=== PATIENT | female | born 1960 | race African-American/Black ===

== ENCOUNTER 2017-02-23 15:47 | Emergency (ER) | payer SELFPAY ==
[~2017-02-23 15:47] MED LIST: IBUP-974 PO
--- NOTE | 2017-02-23 15:49 | NUR ---
CALLED PT FOR TRIAGE ASSESSMENT, NO ANSWER.
--- NOTE | 2017-02-23 16:04 | NUR ---
CALLED PT FOR TRIAGE ASSESSMENT X2, NO ANSWER.
== END 2017-02-23 16:04 | disposition left against medical advice (07) ==
LOC: MED 15:47
DX: R07.89 Other chest pain (principal); Z53.21 Procedure and treatment not carried out due to patient leaving prior to being seen by health care provider